=== PATIENT | female | born 1995 | race Caucasian/White ===

== ENCOUNTER 2020-04-23 09:11 | Observation (INO) | payer BC, SELFPAY ==
[2020-04-23] VITALS (25 sets, daily range): BP systolic 113–150; BP diastolic 63–106; PULSE 55–91; RESP 14–20; TEMP 36.2–36.8; O2SAT 93–100; BMI 22.1; BMI 22.8; BMI 22.9
[2020-04-23 09:32] LABS: Apearance,Urine Clear (Clear); Color,Urine Yellow (Yellow); PH,Urine 6.5 (5.0-8.5)
[2020-04-23 09:33] LABS: Bilirubin,Urine Negative (Negative); Blood, Urine Negative (Negative); Glucose,Urine (UA) Negative (Negative); Ketones,Urine Negative (Negative); Protein,Urine Negative (Negative); UTC Leukocyte Esterase,Urine Negative (Negative); UTC Nitrate,Urine Negative (Negative); Urobilinogen,Urine 0.2 EU/dl (0.2)
[2020-04-23 09:34] LABS: UTC Pregnancy Test, Urine Negative (Negative)
--- NOTE | 2020-04-23 09:34 | HMH.EDUTC ---
[facility] Disposition Clinical Impression: Abdominal pain Qualifiers: Abdominal location: unspecified location Qualified Code(s): R10.9 - Unspecified abdominal pain Disposition: Still a Patient Condition on Discharge: Good Referrals: Dg Jacobsen [Primary Care Provider] - Time of Disposition: 09:56 Medical Decision Making - Jose Inquiry Pt receiving controlled substance: No Jose was queried for this patient: No Vital Signs: 04/23/20 09:24 Temperature 98.1 F Temperature Source Oral Pulse Rate [Right] 66 Respiratory Rate 16 Blood Pressure [Right Arm] 150/106 H Blood Pressure Mean [Right Arm] 120 02 Sat by Pulse Oximetry 100 - Lab Data Lab results reviewed: Yes: I reviewed the patient's lab results. Lab Results 04/23/20 09:15: Urine Color Yellow, Urine Appearance Clear, Urine pH 6.5, Ur Specific [place] 1.010, Urine Protein Negative, Urine Glucose (UA) Negative, Urine Ketones Negative, Urine Blood Negative, Urine Nitrate Negative, Urine Bilirubin Negative, Urine Urobilinogen 0.2, Ur Leukocyte Esterase Negative 04/23/20 09:33: [facility] Negative Medical Decision Narrative: Patient was grimacing when abdomen palpated and reports uncomfortable when right lower quad palpated and noticed when palpating right lower quad patient was guarded and reported sharp pain. States that pain started on Wednesday night and at times is sharp in nature, states is not as bad as it was last night but still uncomfortable today and worse when she raises her leg to put on her pants and wanted to come in and get checked for appendicitis. Discussed with patient and due to symptoms recommended that patient needed to be transferred to Ed for further work up and evaluation Called ED and spoke with staff patient to be moved to room [address] [facility] HPI - General Stated complaint: lower abd pain Time Seen by Provider: 04/23/20 09:35 Mode of Arrival: Ambulatory Source of Information: Patient Limitations: No Limitations Description of Symptoms (Recalled from Triage Doc. by RN): pt states she has been having RLQ pain. she has been nauseated. it was hurting when she would put on her pants or if she moved very much. pt is also having loss of appetite. however, she states the pain is not really there today. she came in curious if it coulg be her appendix. HEENT Symptoms (Recalled from RN notes): No Resp Symptoms (Recalled from RN notes): No Skin Symptoms (Recalled from RN notes): No MS Symptoms (Recalled from RN notes): No Functional Status (Recalled from RN notes): NA - History of Present Illness Provider Complaint: Patient states that she has been having pain in her lower right abdomen for several days States that pain was worse last night and sharp but today is more uncomfortable and she cant explain it. States that pain is worse and sharp when she raises her leg, bends to pull up her pants and moves around alot States that she was worried and wanted to get checked for Appendicitis States that she has had loss of appetitie and nausea since the pain started on Wednesday States that today pain is not as bad but reports but she is is uncomfortable in her right lower quad Denies known fever - Related Data Allergies Allergy/AdvReac Type Severity Reaction Status Date / Time No Known Allergies Allergy Verified 04/23/20 09:29 - Worker's Comp Is this a Worker's Comp case?: No [facility] History - Hepatitis A Screen Drug use history?: No High risk sexual behaviors?: No History of sexually transmitted infection?: No Currently employed?: No Childcare worker?: No Do you have indoor plumbing?: Yes Do you have electricity?: Yes Attestation statement:: This patient has been screened for Hepatitis A risk factors. I have reviewed the patient's past medical history: Yes Medical History: Denies:: Cancer, Diabetes Mellitus Type 1, Diabetes Mellitus Type 2, Hypertension, MRSA Other Surgeries: Yes: No Previous Surgery Amputation: No Fractures: N
[2020-04-23 10:11] LABS: Basophils % 0.5 % (0.1-2.0); Eosinophils # 0.1 K/mm3 (0.0-0.4); Eosinophils % 1.9 % (0.1-12.0); Hematocrit 40.3 % (37.0-47.0); Hemoglobin 12.8 g/dL (12.2-16.2); Lymphocytes # 2.8 K/mm3 (0.7-4.5); Lymphocytes % 36.7 % (10-50); Mean Corpuscular HGB Conc 31.9 g/dL (31.8-35.4); Mean Corpuscular Hemoglobin 29.2 pg (27.0-31.2); Mean Corpuscular Volume 91.5 fl (81-99); Mean Platelet Volume 9.3 fl (7.4-10.4); Monocytes # 0.5 K/mm3 (0.1-1.0); Monocytes % 6.2 % (1.7-9.3); Neutrophils # 4.1 K/mm3 (1.8-7.8); Neutrophils % 54.7 % (37.0-80.0); Platelet Count 171 K/mm3 (142-424); Red Cell Distribution Width 13.5 % (11.5-17.5); White Blood Count 7.5 K/mm3 (4.8-10.8)
[2020-04-23 10:17] LABS: Alanine Aminotransferase 14 U/L (12-78); Albumin Level 4.3 g/dl (3.5-5.0); Albumin/Globulin Ratio 1.3 (1.1-1.8); Alkaline Phosphatase 48 U/L (38-126); Aspartate Amino Transferase 25 U/L (14-36); Bilirubin,Total 0.4 mg/dl (0.2-1.3); Blood Urea Nitrogen 8 mg/dl (7-17); Calcium 9.8 mg/dl (8.4-10.2); Carbon Dioxide 27 mmol/L (22.0-30.0); Chloride 106 mmol/L (98-107); Creatinine Clearance Estimated 104 mL/min (50-200); Estimated Glomerular Filt Rate 78 ml/min (>60); GFR (African American) 94 ML/MIN (>60); Globulin 3.4 g/dL (1.3-3.2); Glucose 92 mg/dl (74-100); Sodium 138 mmol/L (136-145); Total Protein,Serum 7.7 g/dl (6.3-8.2)
[2020-04-23 10:25] LABS: Microscopic, Urine URINE MICROSCOPIC (MICROSCOPIC)
[2020-04-23 10:27] LABS: Appearance,Urine CLEAR (Clear); Bilirubin,Urine Negative (Negative); Blood, Urine Negative (Negative); Color,Urine YELLOW (Yellow); Glucose,Urine (UA) Negative (Negative); Ketones,Urine Negative (Negative); Leukocyte Esterase,Urine Negative (Negative); Nitrate,Urine Negative (Negative); PH,Urine 6.5 (5.0-8.5); Protein,Urine Negative (Negative); Specific Gravity, Urine <= 1.005 (1.005-1.030); Urobilinogen,Urine 0.2 EU/dl (0.2)
--- NOTE | 2020-04-23 10:30 | CT_ITS ---
PROCEDURE: CT ABDOMEN PELVIS W CON CLINICAL INDICATION: pain Right lower abdominal pain COMPARISON: No exams were available for comparison TECHNIQUE: IV Contrast: 75ML Isovue 370 Oral Contrast None Axial images obtained with sagittal and coronal reformats. All CT scans at the facility use one or more dose reduction, viz: automated exposure control, ma/kV adjustment per patient size (including targeted exams where dose is matched to indication, i.e. head), or iterative reconstruction technique. FINDINGS: LOWER THORAX: Mild atelectatic or fibrotic changes are present in the left lung base. ABDOMEN & PELVIS: The liver, gallbladder, spleen, adrenal glands, pancreas, and kidneys have an unremarkable appearance. No intestinal obstruction or free air. There is a moderate amount of retained colonic feces. There is prominence of the low-dense changes of the endometrium which is nonspecific. The appendix is thickened with stranding of the periappendiceal fat. The appendix extends cephalad from the cecum superiorly dorsal to the ascending colon between the ascending colon and the psoas muscle. No abscess. No perforation apparent. Urinary bladder is somewhat distended. There is a small amount fluid in the pelvis. IMPRESSION: Findings are compatible with acute appendicitis. The appendix is located posterior to the proximal aspect of the ascending colon and anterior to the psoas muscle. No abscess or perforation apparent Dictated by: Иван Burch MD 04/23/2020 12:14 Иван Burch MD in [place] 04/23/2020 12:14
[2020-04-23 10:41] LABS: Bacteria,Urine 2+ /lpf
--- NOTE | 2020-04-23 11:06 | HMH.EDGENADL ---
ED Disposition Clinical Impression: Acute appendicitis Qualifiers: Acute appendicitis type: with localized peritonitis Appendicitis gangrene presence: without gangrene Appendicitis perforation presence: without perforation Appendicitis abscess presence: without abscess Qualified Code(s): K35.30 - Acute appendicitis with localized peritonitis, without perforation or gangrene Disposition: Admitted as Observation Condition on Discharge: Good - Critical Care Critical Care Time: No Attestation: On 04/23/20, the high probability of a clinically significant, sudden or life threatening deterioration of the following system(s) required my full and direct attention, intervention and personal management. The time I documented below is in addition to time spent performing reported procedures but includes the following listed in this critical care notation. Medical Decision Making - Medical Records Medical records reviewed: Yes: I reviewed the patient's medical records. - Jose Inquiry Pt receiving controlled substance: No Vital Signs: 04/23/20 09:24 04/23/20 10:11 04/23/20 11:00 Temperature 98.1 F Temperature Source Oral Pulse Rate Pulse Rate [Right] 66 67 67 Respiratory Rate 16 Blood Pressure Blood Pressure [Right Arm] 150/106 H 139/80 115/98 H Blood Pressure Mean [Right Arm] 120 99 103 Blood Pressure Source Blood Pressure Source [Right Arm] Automatic Cuff Blood Pressure Position [Right Arm] Sitting Supine 02 Sat by Pulse Oximetry 100 95 93 L Oxygen Delivery Method Room Air Room Air 04/23/20 11:30 04/23/20 12:00 04/23/20 12:53 Temperature 98.1 F Temperature Source Oral Pulse Rate 84 Pulse Rate [Right] 77 65 Respiratory Rate 17 Blood Pressure 117/95 H Blood Pressure [Right Arm] 130/82 133/101 H Blood Pressure Mean [Right Arm] 98 111 Blood Pressure Source Automatic Cuff Blood Pressure Source [Right Arm] Manual Cuff/ Palpation Automatic Cuff Blood Pressure Position [Right Arm] Supine Supine 02 Sat by Pulse Oximetry 97 93 L Oxygen Delivery Method Room Air Room Air Room Air - Lab Data Lab Results 04/23/20 09:15: Urine Color Yellow, Urine Appearance Clear, Urine pH 6.5, Ur Specific [place] 1.010, Urine Protein Negative, Urine Glucose (UA) Negative, Urine Ketones Negative, Urine Blood Negative, Urine Nitrate Negative, Urine Bilirubin Negative, Urine Urobilinogen 0.2, Ur Leukocyte Esterase Negative 04/23/20 09:30: Urine Color Yellow, Urine Appearance Clear, Urine pH 6.5, Ur Specific [place] <= 1.005, Urine Protein Negative, Urine Glucose (UA) Negative, Urine Ketones Negative, Urine Blood Negative, Urine Nitrate Negative, Urine Bilirubin Negative, Urine Urobilinogen 0.2, Ur Leukocyte Esterase Negative, Urine WBC 3-5, Ur Squamous Epith Cells 5-10, Urine Bacteria 2+ 04/23/20 09:33: [facility] Negative 04/23/20 09:50: WBC 7.5, RBC 4.40, Hgb 12.8, Hct 40.3, MCV 91.5, MCH 29.2, MCHC 31.9, RDW 13.5, Plt Count 171, MPV 9.3, Neut % (Auto) 54.7, Lymph % (Auto) 36.7, [place] % (Auto) 6.2, Eos % (Auto) 1.9, Baso % (Auto) 0.5, Neut # (Auto) 4.1, Lymph # (Auto) 2.8, [place] # (Auto) 0.5, Eos # (Auto) 0.1, Baso # (Auto) 0.0 04/23/20 09:50: Sodium 138, Potassium 4.0, Chloride 106, Carbon Dioxide 27, Anion Gap 9.0, BUN 8, Creatinine 0.90, Estimated Creat Clear 104, Estimated GFR 78, Est GFR ( Amer) 94, Glucose 92, Calcium 9.8, Total Bilirubin 0.4, AST 25, ALT 14, Alkaline Phosphatase 48, Total Protein 7.7, Albumin 4.3, Globulin 3.4 H, Albumin/Globulin Ratio 1.3 Result diagrams: 04/23/20 09:50 04/23/20 09:50 Orders (Tests/Meds): ED MEDICATIONS Generic Name Dose Route Start Last Admin Trade Name Freq PRN Reason Stop Dose Admin Acetaminophen 650 mg 04/23/20 14:59 Acetaminophen 325mg Tab PO 05/23/20 14:58 Q6HP PRN Mild to Moderate Pain Hydrocodone Bitart/Acetaminophen 1 tab 04/23/20 14:59 04/23/20 18:51 Hydrocodone/Apap 5/325 Mg Tablet PO 05/23/20 14:58 1 tab
--- NOTE | 2020-04-23 12:52 | HMH.GSHP ---
HPI HPI: The pleasant healthy 24-year-old female. She developed right lower quadrant pain 2 evenings ago. It has persisted and progressed. Her symptoms have been worse with movement. She had diminished appetite yesterday but feels relatively hungry today. She presented to the emergency department where her work-up included CT scan which revealed findings consistent with acute appendicitis. Surgical consultation was obtained. [facility] History I have reviewed the patient's past medical history: Yes Medical History: Denies:: Cancer, Diabetes Mellitus Type 1, Diabetes Mellitus Type 2, Hypertension, MRSA *Have you ever received a pneumonia vaccine?: No *Have you received a flu vaccine this season?: Yes Other Surgeries: Yes: No Previous Surgery Amputation: No Fractures: No - *Social History Smoking Status: Never smoker Alcohol Intake: never *Occupational Status:: employed *Travel in the last 8 weeks: None Family Hx:: Non-contributory Review of Systems - Review of Systems Review of systems:: pertinent systems reviewed and negative unless documented below Meds Home Medications Medication Instructions Recorded Confirmed Type No Known Home Medications 04/23/20 04/23/20 History Allergies Allergy/AdvReac Type Severity Reaction Status Date / Time No Known Allergies Allergy Verified 04/23/20 09:29 Exam Vital signs and Labs for Last 24 Hours: Temp Pulse Resp BP Pulse Ox 98.1 F 65 16 133/101 H 93 L 04/23/20 09:24 04/23/20 12:00 04/23/20 09:24 04/23/20 12:00 04/23/20 12:00 Laboratory Results - last 24 hr 04/23/20 09:15: Urine Color Yellow, Urine Appearance Clear, Urine pH 6.5, Ur Specific [place] 1.010, Urine Protein Negative, Urine Glucose (UA) Negative, Urine Ketones Negative, Urine Blood Negative, Urine Nitrate Negative, Urine Bilirubin Negative, Urine Urobilinogen 0.2, Ur Leukocyte Esterase Negative 04/23/20 09:30: Urine Color Yellow, Urine Appearance Clear, Urine pH 6.5, Ur Specific [place] <= 1.005, Urine Protein Negative, Urine Glucose (UA) Negative, Urine Ketones Negative, Urine Blood Negative, Urine Nitrate Negative, Urine Bilirubin Negative, Urine Urobilinogen 0.2, Ur Leukocyte Esterase Negative, Urine WBC 3-5, Ur Squamous Epith Cells 5-10, Urine Bacteria 2+ 04/23/20 09:33: [facility] Negative 04/23/20 09:50: WBC 7.5, RBC 4.40, Hgb 12.8, Hct 40.3, MCV 91.5, MCH 29.2, MCHC 31.9, RDW 13.5, Plt Count 171, MPV 9.3, Neut % (Auto) 54.7, Lymph % (Auto) 36.7, [place] % (Auto) 6.2, Eos % (Auto) 1.9, Baso % (Auto) 0.5, Neut # (Auto) 4.1, Lymph # (Auto) 2.8, [place] # (Auto) 0.5, Eos # (Auto) 0.1, Baso # (Auto) 0.0 04/23/20 09:50: Sodium 138, Potassium 4.0, Chloride 106, Carbon Dioxide 27, Anion Gap 9.0, BUN 8, Creatinine 0.90, Estimated Creat Clear 104, Estimated GFR 78, Est GFR ( Amer) 94, Glucose 92, Calcium 9.8, Total Bilirubin 0.4, AST 25, ALT 14, Alkaline Phosphatase 48, Total Protein 7.7, Albumin 4.3, Globulin 3.4 H, Albumin/Globulin Ratio 1.3 I & O for Last 24 hours: Intake & Output 04/21/20 04/22/20 04/23/20 04/24/20 11:59 11:59 11:59 11:59 Weight 150 lb - *Routine HEENT Exam Head: Present: normocephalic Eye: Present: EOMI, PERRL ENT: Present: mucous membranes moist - *Routine Neck Exam Present: supple. Absent: lymphadenopathy - *Routine Respiratory Exam Present: CTA bilaterally - *Routine Cardiovascular Exam Present: RRR - *Routine Abdominal Exam Present: soft, normoactive bowel sounds, tenderness Comments: She has tenderness with guarding in the right lower quadrant at McBurney's point. - *Routine Extremities Exam Absent: cyanosis, clubbing, edema - *Routine Skin Exam Present: warm. Absent: rash - *Routine Neurological Exam Present: alert, oriented X3 Results - Results Lab Results Last 24 Hours:: Laboratory Results - last 24 hr 04/23/20 09:15: Urine Color Yellow, Urine Appearance Clear, Urine pH 6.5, Ur Specific [place] 1.010, Urine Protei
--- NOTE | 2020-04-23 13:09 | P.PN_ITS ---
[facility] Anesthesia Checklist - Patient Identification Patient Identification: Arm Band - Structural Data Admitted From: Home Planned Operative Procedure/s: laparoscopic appendectomy Consent for Planned Operative Procedure(s) Verified: Yes - NPO Status Verified Time NPO: 08:00 (yogurt and water) - Additional verifications Anesthesia Reactions: No - Airway Assessment C-Spine Mobility Assessed: Yes (mp2) TMJ Mobility Assessed: Yes Dentition: Good Dentition - Neurological Assessment Level of Consciousness: Awake, Alert - Anesthesia Plan Anesthesia Risk discussed: Yes Anesthesia Plan: Verified ASA Class: I (e) Anesthesia Type: General [facility] History I have reviewed the patient's past medical history: Yes Medical History: Denies:: Cancer, Diabetes Mellitus Type 1, Diabetes Mellitus Type 2, Hypertension, MRSA *Have you ever received a pneumonia vaccine?: No *Have you received a flu vaccine this season?: Yes Anesthesia experience/problems:: nac Other Surgeries: Yes: No Previous Surgery Amputation: No Fractures: No - *Social History Smoking Status: Never smoker Alcohol Intake: never Substance Use Type: denies use *Occupational Status:: employed *Travel in the last 8 weeks: None Family Hx:: Non-contributory
--- NOTE | 2020-04-23 14:51 | P.OP_ITS ---
Date of procedure: 04/23/20 Pre-op Diagnosis:: Acute appendicitis Post-op Diagnosis:: Same Procedure performed:: Laparoscopic appendectomy Surgeon:: Mark Montes MD CLERICAL SECRETARY:: Other Anesthesia: GETA Estimated blood loss (mL): 15 Clinical Note:: Patient is a pleasant healthy 24-year-old female. She developed right lower quadrant pain 2 evenings ago. It has persisted and progressed. Her symptoms have been worse with movement. She had diminished appetite yesterday but feels relatively hungry today. She presented to the emergency department where her work-up included CT scan which revealed findings consistent with acute appendicitis. Surgical consultation was obtained. Arrangements were made for appendectomy Operative findings:: Patient had an acutely inflamed indurated erythematous but nonsuppurative appendicitis. This was in the retrocecal and retroperitoneal location. Operative note:: Consent was obtained and patient was taken to the operating room. She was positioned in a supine position. General anesthesia was induced. Levi catheter was placed. Abdomen was prepped and draped in the standard surgical fashion. Subumbilical skin incision was made. While performing abdominal wall lift Veress needle was inserted. CO2 pneumoperitoneum was achieved to 15 mmHg. 12 mm optical trocar was inserted at the umbilicus. 5 mm trocar was inserted in the suprapubic location. Additional 5 mm trocar was inserted in the right upper abdomen. 30 degree 5 mm laparoscope was inserted through the right upper abdominal trocar. The cecum was somewhat mobile and located within the pelvis. It was delivered to the abdomen as the patient was positioned in Trendelenburg left side down. At the tip of the cecum the base of the appendix was identified. The appendix was retrocecal and retroperitoneal. Appendix was grasped with an endoscopic Burket. Dissection was carried out incising the peritoneal attachments adjacent to the appendix. Lateral peritoneal attachments were incised mobilizing the cecum medially. The appendix was quite elongated with the tip actually being near the right upper quadrant. Prolonged dissection was carried out freeing the appendix from the retroperitoneum. Appendix was then able to be grasped and mobilized anteriorly. Mesoappendix was divided with MATTEO ultrasonic harmonic сергей with care taken to coagulate the appendiceal artery and in process. Dissection was then carried down to the appendiceal base. The appendix was divided at its base with an endoscopic BOYD linear cutting stapling device. The appendix was placed within an Endo Catch retrieval device and removed from the peritoneal cavity via the umbilical trocar site. There was some minor oozing from the periappendiceal mesentery and Hemoclip was placed for assurance of hemostasis. Limited irrigation was performed. There appeared to be good hemostasis. Trochars were then removed as CO2 pneumoperitoneum was evacuated. Fascia at the umbilicus was closed with a 0 Vicryl suture. Local anesthetic was infiltrated. Skin incisions were closed with 4-0 Monocryl in a subcuticular fashion. Steri-Strips and dressings were applied. Condition: stable Disposition: PACU Specimens:: Appendix Complications:: None immediately apparent
--- NOTE | 2020-04-23 15:00 | HMH.ANESI ---
[facility] Anesthesia Record Part I Intake, IV Amount: 1,200 Estimated blood loss (mL): 20 Urine output (mL): 100 Blood Products used (#): none Blood Pressure: 130/92 SaO2: 95 Pulse Rate: 87 Respiratory Rate: 14 Temperature: 97.2 F Patient is:: Drowsy Stable to PACU at:: 14:54
[2020-04-23 15:14] LABS: Microscopic,Cath URINE MICROSCOPIC (MICROSCOPIC)
--- NOTE | 2020-04-23 15:33 | P.CONPHA_ITS ---
[facility] Pharmacy VTE Monitoring - Patient Demographics Admission date: 04/23/20 Report Date: 04/23/20 Time: 15:33 Allergies/Adverse Reactions: Patient Allergies No Known Allergies Allergy (Verified 04/23/20 09:29) Height: 1.75 m Weight: 70.534 kg Patient Problems: Current Active Problems Acute appendicitis (Acute) - VTE Risk Labs: VTE Related Lab Results Hgb 12.8 g/dL (12.2-16.2) 04/23/20 09:50 Hct 40.3 % (37.0-47.0) 04/23/20 09:50 Plt Count 171 K/mm3 (142-424) 04/23/20 09:50 BUN 8 mg/dl (7-17) 04/23/20 09:50 Creatinine 0.90 mg/dl (0.52-1.04) 04/23/20 09:50 Estimated Creat Clear 104 mL/min (50-200) 04/23/20 09:50 - Prophylaxis VTE Prophylaxis Ordered?: Yes Types of VTE Prophylaxis: TEDS Knee High Location of Applied Device: Bilateral Lower Extremeties
[2020-04-23 15:51] LABS: Appearance,Urine/Cath CLEAR (Clear); Bilirubin,Cath Negative (Negative); Blood, Urine/Cath Negative (Negative); Color,Urine/Cath YELLOW (Yellow); Glucose,Urine/Cath (UA) Negative (Negative); Ketones,Urine/Cath 1+ (Negative); Leukocyte Esterase,Cath Negative (Negative); Nitrate,Cath Negative (Negative); Protein,Urine/Cath Negative (Negative); Urobilinogen,Cath 0.2 EU/dl (0.2)
[2020-04-23 16:11] LABS: Bacteria,Urine/Cath TRACE /lpf
[2020-04-24 01:45] VITALS: RESP 18
[2020-04-24 03:51] VITALS: BP 120/49; PULSE 59; RESP 18; TEMP 36.8; O2SAT 100
[2020-04-24 05:58] VITALS: BMI 22.6
--- NOTE | 2020-04-24 06:50 | PC.NURSE ---
no acute changes. pt reports passing gas. pain reported this shift and prn med given with relief. iv patent and infusing per order. ambulates independently. incisions have dressing in place and are c/d/i. vss. call light in reach. will continue to monitor
--- NOTE | 2020-04-24 07:07 | P.PN_ITS ---
Subjective Narrative: Patient rested well overnight. She has had some pain and soreness relieved with narcotic pain medication. She has tolerated full liquid diet without nausea. She did have some symptoms of heartburn type symptoms. Progress Note: A&P Assessment and Plan for All Diagnoses:: Probable discharge home later today. Exam Vital signs and Labs for Last 24 Hours: Temp Pulse Resp BP Pulse Ox 98.3 F 59 L 18 120/49 L 100 04/24/20 03:51 04/24/20 03:51 04/24/20 03:51 04/24/20 03:51 04/24/20 03:51 Laboratory Results - last 24 hr 04/23/20 09:15: Urine Color Yellow, Urine Appearance Clear, Urine pH 6.5, Ur Specific [place] 1.010, Urine Protein Negative, Urine Glucose (UA) Negative, Urine Ketones Negative, Urine Blood Negative, Urine Nitrate Negative, Urine Bilirubin Negative, Urine Urobilinogen 0.2, Ur Leukocyte Esterase Negative 04/23/20 09:30: Urine Color Yellow, Urine Appearance Clear, Urine pH 6.5, Ur Specific [place] <= 1.005, Urine Protein Negative, Urine Glucose (UA) Negative, Urine Ketones Negative, Urine Blood Negative, Urine Nitrate Negative, Urine Bilirubin Negative, Urine Urobilinogen 0.2, Ur Leukocyte Esterase Negative, Urine WBC 3-5, Ur Squamous Epith Cells 5-10, Urine Bacteria 2+ 04/23/20 09:33: [facility]st Clinic Negative 04/23/20 09:50: WBC 7.5, RBC 4.40, Hgb 12.8, Hct 40.3, MCV 91.5, MCH 29.2, MCHC 31.9, RDW 13.5, Plt Count 171, MPV 9.3, Neut % (Auto) 54.7, Lymph % (Auto) 36.7, [place] % (Auto) 6.2, Eos % (Auto) 1.9, Baso % (Auto) 0.5, Neut # (Auto) 4.1, Lymph # (Auto) 2.8, [place] # (Auto) 0.5, Eos # (Auto) 0.1, Baso # (Auto) 0.0 04/23/20 09:50: Sodium 138, Potassium 4.0, Chloride 106, Carbon Dioxide 27, Anion Gap 9.0, BUN 8, Creatinine 0.90, Estimated Creat Clear 104, Estimated GFR 78, Est GFR ( Amer) 94, Glucose 92, Calcium 9.8, Total Bilirubin 0.4, AST 25, ALT 14, Alkaline Phosphatase 48, Total Protein 7.7, Albumin 4.3, Globulin 3.4 H, Albumin/Globulin Ratio 1.3 04/23/20 13:45: Urine Color Yellow, Urine Appearance Clear, Urine pH 6.0, Ur Specific [place] 1.010, Urine Protein Negative, Urine Glucose (UA) Negative, Urine Ketones 1+, Urine Blood Negative, Urine Nitrate Negative, Urine Bilirubin Negative, Urine Urobilinogen 0.2, Ur Leukocyte Esterase Negative, Urine RBC None, Urine WBC 3-5, Ur Squamous Epith Cells 5-10, Urine Bacteria Trace I & O for Last 24 hours: Intake & Output 04/21/20 04/22/20 04/23/20 04/24/20 11:59 11:59 11:59 11:59 Intake Total 2705 / 2705 Balance 2705 / 2705 Weight 150 lb 153 lb 3 oz Microbiology Reports for the Last 24 Hours: Microbiology 04/23/20 11:25 Nasopharyngeal Coronavirus COVID-19 PCR - Final - *Routine Abdominal Exam Present: soft Comments: Dressings dry
--- NOTE | 2020-04-24 07:27 | P.PN_ITS ---
[facility] Anesthesia Record Part II Discharge Time: 15:14 Destination: Medical Surgical Department PACU nurse assessment reviewed?: Yes Patient Condition:: Good Anesthesia Complications:: None Swallowing reflex intact?: Yes Cyanosis?: No Blood Pressure: 133/82 Pulse Rate: 82 Temperature: 97.3 F Mental Status: Alert & Oriented Pain level:: 0 Nausea and/or vomitting:: None Intake, IV Amount: 0
[2020-04-24 07:28] VITALS: BP 133/82; PULSE 82; TEMP 36.3
[2020-04-24 07:54] VITALS: BP 148/87; PULSE 65; RESP 16; TEMP 36.8; O2SAT 99
[2020-04-24 11:53] VITALS: BP 127/57; PULSE 71; RESP 15; TEMP 36.9; O2SAT 96
--- NOTE | 2020-04-24 13:12 | [facility].DCSUM ---
General - General Admission date:: 04/23/20 Discharge date: 04/24/20 HPI HPI: Patient is a pleasant healthy 24-year-old female. She developed right lower quadrant pain 2 evenings prior to presentation. It had persisted and progressed. Her symptoms have been worse with movement. She had diminished appetite day prior to presentation. She presented to the emergency department where her work-up included CT scan which revealed findings consistent with acute appendicitis. Surgical consultation was obtained. She was found to have focal peritonitis with guarding in the right lower quadrant. Arrangements were made for appendectomy Hospital Course Hospital Course: Patient was taken to the operating room and underwent laparoscopic appendectomy. She was found to have a significantly elongated retrocecal and retroperitoneal appendix which was indurated and inflamed. The tip of the appendix was asked near the right upper quadrant. Please see operative dictation for complete details. This was able to the managed laparoscopically. Postoperatively she was admitted for continuation of perioperative intravenous antibiotics. She was given a full liquid diet which she tolerated without difficulty. Following morning she felt well. She was having some neck soreness likely from positioning and endotracheal intubation as well as some heartburn type symptoms. This improved. Arrangements were made for discharge home. Objective Vital signs: Temp Pulse Resp BP Pulse Ox 98.5 F 71 15 127/57 L 96 04/24/20 11:53 04/24/20 11:53 04/24/20 11:53 04/24/20 11:53 04/24/20 11:53 Results Labs on day of discharge: Labs from last 24 hours 04/23/20 13:45 Urine Color Yellow Urine Appearance Clear Urine pH 6.0 Ur Specific [place] 1.010 Urine Protein Negative Urine Glucose (UA) Negative Urine Ketones 1+ Urine Blood Negative Urine Nitrate Negative Urine Bilirubin Negative Urine Urobilinogen 0.2 Ur Leukocyte Esterase Negative Urine RBC None Urine WBC 3-5 Ur Squamous Epith Cells 5-10 Urine Bacteria Trace Preliminary micro results at discharge 04/23/20 09:30 Urine Culture - Preliminary Urine,Clean Catch NO GROWTH AFTER 24 HOURS Discharge Plan - Patient Discharge Instructions ACTIVITY: No heavy lifting DIET: advance to your usual diet Additional Instructions: No lifting greater than 10 lbs 2 weeks. Patient Instructions: DI for Appendicitis -- Adult, Appendicitis, DI for an Appendectomy, Appendectomy -- Laparoscopic Surgery - Follow up Plan Follow up with: Mark Montes MD [Staff Physician] - 2 weeks Dg Jacobsen [Primary Care Provider] - Disposition: Home, Self-Jail Medications: Home Medications Medication Instructions Recorded Confirmed Type No Known Home Medications 04/23/20 04/23/20 History Hydrocod/Acet 5/325 mg [[place] 1 - 2 tab PO Q6HP PRN #17 tab 04/24/20 Rx 5/325mg tablet] Prescriptions/Medication Reconciliation: New Hydrocod/Acet 5/325 mg [[place] 5/325mg tablet] 1 - 2 tab PO Q6HP PRN #17 tab PRN Reason: Moderate Pain No Action No Known Home Medications - Problem Reconciliation Problems Reviewed?: Yes
== END 2020-04-24 14:25 | disposition home or self-care (01) ==
LOC: UTC 09:56 → ER 09:58 → OR 13:00 → 2ND 13:20
PROVIDERS: Nurse Practitioner; Admitting Provider Surgery; Emergency Provider Emergency Medicine; PCP Internal Medicine; Visit Provider Surgery
PROC: 0DTJ4ZZ Resection of Appendix, Percutaneous Endoscopic Approach (ICD-10-PCS; CPT 44970; principal; 2020-04-23 12:35)
DX: K35.890 Other acute appendicitis without perforation or gangrene (principal)
CPT/HCPCS: 44970; 74177; 80053; 81001; 81003; 81025; 85025; 87086; 99284; G0378; J0330; J2405; Q9967; U0003

== ENCOUNTER → 2021-05-26 15:59 | Outpatient (CLI) | payer BC, SELFPAY ==
--- NOTE | 2021-05-26 16:04 | XR_ITS ---
FINAL REPORT CLINICAL HISTORY: LEFT FOOT INJURY FINDINGS: LEFT FOOT History views of the left foot were obtained. There is no acute fracture or dislocation. Visualized joint spaces are normally aligned. Soft tissues are unremarkable. IMPRESSION: No acute bony abnormality. Reviewed, Interpreted and Dictated by Mark Estrada III, MD Transcribed by Esperanza Puga Authenticated by Mark Estrada III, MD on 05/26/2021 04:46:26 PM [facility]
== END ==
PROVIDERS: PCP Internal Medicine; Visit Provider Internal Medicine
DX: S99.922D Unspecified injury of left foot, subsequent encounter (principal)
CPT/HCPCS: 73630

== ENCOUNTER → 2022-04-17 13:58 | Outpatient (CLI) | payer BC, SELFPAY ==
--- NOTE | 2022-04-17 14:01 | MR_ITS ---
FINAL REPORT CLINICAL HISTORY: HEADACHES AROUND EYES , VISUAL DISTURBANCE FINDINGS: Multiplanar MR imaging of the brain was performed without and with contrast. There is no evidence of intracranial hemorrhage or mass. No abnormal extra-axial fluid collection is seen. The ventricular size is within normal limits. There is no evidence of shift of the midline structures. The posterior fossa and brainstem have an unremarkable appearance. No area of abnormal restricted diffusion is identified. No abnormal contrast enhancement is seen. Normal major vessel vascular flow voids are noted. There is mild mucosal thickening of the left maxillary sinus. IMPRESSION: No acute intracranial abnormality identified. Reviewed, Interpreted and Dictated by Mark Estrada III, MD Transcribed by Cely Vinson Authenticated and [facility]
== END ==
PROVIDERS: PCP Nurse Practitioner Family; Visit Provider Nurse Practitioner Family
DX: R51.9 Headache, unspecified (principal); H53.9 Unspecified visual disturbance
CPT/HCPCS: 70553; A9576